=== PATIENT | male | born 1995 | race Caucasian/White ===

== ENCOUNTER 2019-05-26 14:59 | Emergency (ER) | payer OTHER ==
--- NOTE | 2019-05-26 15:02 | ERPHSYRPT ---
- History of Present Illness Time Seen by Provider: 05/26/19 15:02 Source: patient Exam Limitations: no limitations Physician History: 23 y/o white male presents with right earache since yesterday morning. pt denies fever. denies drainage. Timing/Duration: abrupt onset, yesterday Severity: moderate ENT Location: ear (R) Prearrival Treatment: no prearrival treatment Associated Symptoms: ear pain (R), No fever, No ear drainage, No hearing loss Allergies/Adverse Reactions: No Known Drug Allergies Allergy (Unverified 05/26/19 15:23) - Review of Systems Constitutional: No Symptoms Eyes: No Symptoms Ears, Nose, & Throat: Ear Pain (right) Respiratory: No Symptoms Cardiac: No Symptoms Abdominal/Gastrointestinal: No Symptoms Genitourinary Symptoms: No Symptoms Musculoskeletal: No Symptoms Skin: No Symptoms Neurological: No Symptoms Psychological: No Symptoms Endocrine: No Symptoms Hematologic/Lymphatic: No Symptoms Immunological/Allergic: No Symptoms All Other Systems: Reviewed and Negative - Past Medical History Pertinent Past Medical History: Yes Neurological History: No Pertinent History ENT History: No Pertinent History Cardiac History: No Pertinent History Respiratory History: No Pertinent History Endocrine Medical History: No Pertinent History Musculoskeletal History: No Pertinent History GI Medical History: No Pertinent History History: No Pertinent History Psycho-Social History: No Pertinent History Male Reproductive Disorders: No Pertinent History - Nursing Vital Signs Nursing Vital Signs: Initial Vital Signs Temperature 98.1 F 05/26/19 15:11 Pulse Rate 92 H 05/26/19 15:11 Respiratory Rate 18 05/26/19 15:11 Blood Pressure 131/78 05/26/19 15:11 O2 Sat by Pulse Oximetry 97 05/26/19 15:11 Pain Scale Pain Intensity 7 - Physical Exam General Appearance: no apparent distress, alert, anxiety Eye Exam: bilateral eye: normal inspection, PERRL, EOMI Ear Exam: left ear: auricle normal, canal normal, TM normal Nasal Exam: normal inspection Throat Exam: normal, pharynx normal, moist mucus membranes, No dental tenderness Neck Exam: normal inspection, non-tender, supple, full range of motion, trachea midline Cardiovascular/Respiratory Exam: chest non-tender, normal breath sounds, regular rate/rhythm, no respiratory distress Abdominal Exam: non-tender, soft Neurologic Exam: alert, oriented x 3, cooperative, 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 follow up with primary doctor for further management. Prescriptions: Amoxicillin [Amoxil] 1,000 mg PO Q8H #42 capsule Prednisone 10 mg [Deltasone 10 mg] 10 mg PO TID #6 tablet
[2019-05-26 15:23] VITALS: O2SAT 97
[2019-05-26] MEDS ORDERED: Rocephin 1000 MG INJ IM ONE (15:37)
[2019-05-26] MEDS ORDERED: solu-MEDROL 125 MG IM ONE (15:38)
[2019-05-26] MEDS ORDERED: Rocephin 1000 MG INJ ONE (15:46)
[2019-05-26] MEDS ORDERED: solu-MEDROL 125 MG ONE (15:46)
[2019-05-26 16:29] VITALS: BP 122/72; PULSE 100
== END 2019-05-26 16:29 | disposition home or self-care (01) ==
LOC: ED 14:59
DX: H66.91 Otitis media, unspecified, right ear (principal)
CPT/HCPCS: 96372; 99284; J0696; J2930